=== PATIENT | female | born 1985 | race Caucasian/White ===

== ENCOUNTER → 2020-07-03 | Outpatient (CLI) | payer OTHER ==
[~2020-07-03] MED LIST: CLON0.5T PO; DESV100T PO; ETON68IM3 IMPLANT; QUET50TA PO
== END | disposition home or self-care (01) ==
LOC: STAR 14:29
PROVIDERS: ATTEND Obstetrics & Gynecology Female Pelvic Medicine and Reconstructive Surgery
DX: Z20.828 Contact with and (suspected) exposure to other viral communicable diseases (principal); N81.6 Rectocele; N81.10 Cystocele, unspecified; N39.3 Stress incontinence (female) (male)
CPT/HCPCS: 87635

== ENCOUNTER 2020-07-09 09:06 | Day surgery (SDC) | payer OTHER ==
[~2020-07-09] VITALS: Ht 167.6 cm; Wt 78.0 kg
[~2020-07-09 09:06] MED LIST changes: +EPHEDRINE 50 MG/ML, 1ML IVPush PRN; +LABETALOL 5MG/ML, 20ML IV PRN; +ONDANSETRON 2MG/ML, 2ML IVPush PRN; +PROMETHAZINE 25 MG/ML, 1ML IVPush PRN; +hydrALAzine 20 MG/ML, 1ML IV PRN
[2020-07-09] MEDS ORDERED: CHLORHEXIDINE 15 ML UDC MM ONE (09:30)
[2020-07-09] MEDS ORDERED: ACETAMINOPHEN 500 MG TABLET PO ONE (09:30)
[2020-07-09] MEDS ORDERED: LACTATED RINGERS 1,000 ML IV SCH ×2 (09:30→12:30)
[2020-07-09 09:51] VITALS: BP 152/108
[2020-07-09] MEDS ORDERED: MIDAZOLAM 1 MG/ML, 2ML ONE (10:20)
[2020-07-09] MEDS ORDERED: FENTANYL PF 100 MCG/2ML ONE ×2 (10:20→12:32)
[2020-07-09] MEDS ORDERED: FLUORESCEIN SODIUM 500 MG/5 ML ONE (10:21)
[2020-07-09] MEDS ORDERED: NEOMY/POLYMYXIN B GU IRR. 1 ML ONE (10:21)
[2020-07-09] MEDS ORDERED: LIDOCAINE-MPF 2% ,5ML ONE (10:22)
[2020-07-09] MEDS ORDERED: DEXAMETHASONE 4 MG/ML, 5ML ONE (10:22)
[2020-07-09] MEDS ORDERED: SUCCINYLCHOLINE 20 MG/ML, 10ML ONE (10:23)
[2020-07-09] MEDS ORDERED: KETOROLAC 30 MG/1 ML ONE (10:23)
[2020-07-09] MEDS ORDERED: ONDANSETRON 2MG/ML, 2ML ONE (10:23)
[2020-07-09] MEDS ORDERED: SUGAMMADEX 200 MG/2 ML IVPush ONE (10:23)
[2020-07-09] MEDS ORDERED: PROPOFOL 10 MG/ML, 20ML ONE (10:23)
[2020-07-09 10:37] LABS: HCG UR SG 1.029 (1.003-1.030)
[2020-07-09] MEDS ORDERED: SODIUM CHLORIDE 0.9% PF 10ML ONE (10:51)
[2020-07-09] MEDS ORDERED: CEFAZOLIN 1,000 MG ONE ×2 (10:51)
[2020-07-09] MEDS ORDERED: ONDANSETRON 2MG/ML, 2ML IVPush PRN (12:30)
[2020-07-09] MEDS ORDERED: HYDROcodone/APAP 5/325 TABLET PO PRN (12:30)
[2020-07-09] MEDS ORDERED: IBUPROFEN 600 MG TABLET PO PRN (12:30)
[2020-07-09] MEDS ORDERED: PROMETHAZINE 25 MG SUPP PR ONE (12:30)
[2020-07-09] MEDS: FENTANYL PF 100 MCG/2ML IV PRN ×2 (12:33→12:44)
[2020-07-09] MEDS: OXYcodone 5 MG/5 ML ORAL.SOL UDC PO PRN ×2 (14:51→15:21)
[2020-07-09] MEDS: HYDROmorphone 1 MG/ML, 1ML INJ IVPush PRN ×2 (15:21→17:52)
[2020-07-09] MEDS ORDERED: OPIUM/BELLADONNA SUPP.RECT 16.2-60 MG PR ONE (16:00)
[2020-07-09] MEDS ORDERED: OPIUM/BELLADONNA SUPP.RECT 16.2-60 MG ONE (16:01)
== END 2020-07-09 19:30 | disposition home or self-care (01) ==
LOC: OUT 09:06
PROVIDERS: ATTEND Obstetrics & Gynecology Female Pelvic Medicine and Reconstructive Surgery
DX: N81.6 Rectocele (principal); N39.3 Stress incontinence (female) (male); F41.9 Anxiety disorder, unspecified; F32.9 Major depressive disorder, single episode, unspecified; I10 Essential (primary) hypertension; Z88.1 Allergy status to other antibiotic agents; Z79.899 Other long term (current) drug therapy; Z72.89 Other problems related to lifestyle; Z82.49 Family history of ischemic heart disease and other diseases of the circulatory system; Z98.890 Other specified postprocedural states
CPT/HCPCS: 57250; 57288; 81025; C1771; J0330; J0690; J1100; J1170; J1885; J2250; J2405; J2704; J3010; J7120

== ENCOUNTER 2020-11-30 17:45 | Emergency (ER) | payer OTHER ==
[~2020-11-30] VITALS: Ht 167.6 cm; Wt 84.9 kg
[~2020-11-30 17:45] MED LIST changes: -EPHEDRINE 50 MG/ML, 1ML IVPush PRN; -LABETALOL 5MG/ML, 20ML IV PRN; -ONDANSETRON 2MG/ML, 2ML IVPush PRN; -PROMETHAZINE 25 MG/ML, 1ML IVPush PRN; -hydrALAzine 20 MG/ML, 1ML IV PRN
[2020-11-30 18:56] LABS: BASOPHILS % (AUTO) 1 % (0-1); EOSINOPHILS % (AUTO) 1 % (1-7); LYMPHOCYTES % (AUTO) 32 % (22-44); MEAN CORPUSCULAR HEMOGLOBIN 34.2 pg (27.0-34.8); MEAN CORPUSCULAR HGB CONC 35.1 g/dL (32.4-35.8); MONOCYTES % (AUTO) 7 % (2-9); NEUTROPHILS % (AUTO) 59 % (42-75); PLATELET COUNT 340 x10^3/uL (130-400); RED BLOOD COUNT 4.51 x10^6/uL (3.82-5.3); RED CELL DISTRIBUTION WIDTH 12.1 % (9.6-15.2)
[2020-11-30 18:57] LABS: MD NO
[2020-11-30 19:03] LABS: CALCIUM 9.5 mg/dL (8.5-10.1); CHLORIDE 106 mmol/L (98-107)
[2020-11-30 19:12] LABS: ALANINE AMINOTRANSFERASE 42 U/L (12-78); ALBUMIN 4.5 g/dL (3.4-5.0); ALKALINE PHOSPHATASE 71 U/L (45-117); BILIRUBIN,TOTAL 0.9 mg/dL (0.2-1.0); CREATININE 0.93 mg/dL (0.55-1.02); TOTAL PROTEIN 8.7 g/dL (6.4-8.2)
[2020-11-30 19:28] LABS: ANION GAP 2 mmol/L (5-15)
[2020-11-30 20:10] VITALS: BP 155/104
== END 2020-11-30 20:25 | disposition home or self-care (01) ==
LOC: ED 20:09
DX: I10 Essential (primary) hypertension (principal)
CPT/HCPCS: 36415; 71045; 80053; 84703; 85025; 93005; 99285